=== PATIENT | male | born 1940 | race Caucasian/White ===

== ENCOUNTER → 2016-07-30 | Outpatient (CLI) | payer OTHER ==
[2016-07-30 13:16] LABS: URINE APPEARANCE CLEAR (CLEAR); URINE BILIRUBIN NEG (NEG); URINE COLOR YELLOW; URINE NITRITE NEG (NEG); URINE SPECIFIC GRAVITY 1.024 (1.000-1.030); UROBILINOGEN NEG (NEG)
[2016-07-30 13:28] LABS: MANUAL MICROSCOPIC REQUIRED? NO; REVIEW REQ? NO
[2016-07-30 13:33] LABS: BLOOD UREA NITROGEN 24 mg/dl (7-18); BUN/CREATININE RATIO 20.2 (10-20); CALCIUM 8.5 mg/dl (8.5-10.1); CARBON DIOXIDE 29 mmol/L (21-32); CHLORIDE 108 mmol/L (98-107); GLUCOSE 99 mg/dl (70-99); MAGNESIUM 2.3 mg/dl (1.8-2.4); POTASSIUM 3.3 mmol/L (3.5-5.1); SODIUM 145 mmol/L (136-145); URIC ACID 7.6 mg/dl (2.6-7.2)
[2016-07-30 13:34] LABS: PHOSPHORUS 2.8 mg/dl (2.5-4.9)
[2016-07-30 13:43] LABS: URINE PROTIEN/CREAT RATIO 0.1 (0-0.2); URINE TOTAL PROTEIN 19.8 mg/dl (0-11.9)
== END | disposition home or self-care (01) ==
LOC: C.LAB1850 12:03
PROVIDERS: ATTEND Internal Medicine Nephrology
DX: I10 Essential (primary) hypertension (principal)

== ENCOUNTER → 2016-08-02 | Outpatient (CLI) | payer OTHER ==
--- NOTE | 2016-08-02 11:54 | DIAGNOSTIC IMAGING REPORT ---
Renal arterial Doppler DUPLEX RENAL ARTERY CLINICAL HISTORY: I10 Resistant hypertension Resistant hypertension, evaluate for r hypertension TECHNIQUE: Arterial Doppler COMPARISON STUDY: None FINDINGS: Arterial Doppler evaluation of the right kidney shows no significant velocity increase. Resistive indices are unremarkable. There is no increased velocity of the left renal artery proximally at 190 cm/s. This would indicate at least a moderate degree of stenotic change. IMPRESSION: Moderate stenotic change origin left renal artery. Arterial Doppler is otherwise negative. Electronically signed by: Josué Swenson M.D. 08/02/2016 11:53 AM Dictated Date/Time: 08/02/2016 11:51 AM
== END | disposition home or self-care (01) ==
LOC: C.ULTRBC 10:04
PROVIDERS: ATTEND Internal Medicine Nephrology
DX: I10 Essential (primary) hypertension (principal)

== ENCOUNTER 2018-09-25 08:05 | Inpatient (IN) ==
--- NOTE | 2018-09-16 16:23 | PAT Medication Instructions ---
Medication Instructions Date of Service September 16, 2018 Home Medications acetaminophen [Tylenol Extra 500 mg PO UD (if needed) amlodipine 10 mg PO HS clonazepam 0.5 mg PO UD PRN (if needed) metoprolol tartrate 25 mg PO BID pantoprazole 40 mg PO BID ASK your surgeon for instructions ibuprofen 600 mg PO UD PRN DO NOT take the morning of surgery cholecalciferol (vitamin D3) 1,000 unit PO DAILY losartan-hydrochlorothiazide 1 tab PO QAM Take morning of surgery With a small sip of water, OTHERWISE NOTHING TO EAT OR DRINK AFTER MIDNIGHT: acetaminophen [Tylenol Extra 500 mg PO UD (okay to take up to 4 hours prior to surgery if needed) clonazepam 0.5 mg PO UD PRN (if needed) metoprolol tartrate 25 mg PO BID pantoprazole 40 mg PO BID Take evening before surgery acetaminophen [Tylenol Extra 500 mg PO UD (if needed) amlodipine 10 mg PO HS clonazepam 0.5 mg PO UD PRN (if needed) metoprolol tartrate 25 mg PO BID pantoprazole 40 mg PO BID Other Notes If you have any questions please call us at [phone] or [phone] or [phone] or [phone]
--- NOTE | 2018-09-17 12:33 | Anesthesiology Consultation ---
Date of Service September 17, 2018 Assessment & Plan (1) Encounter for pre-operative examination: - No previous anesthesia/intubation records Chart Review Chart Review: Acceptable Risk for Surgery and Patient seen in Pre Admission Testing Consults Requested medical (Dr. Luz (09/19)) Patient was seen by PCP on 09/19 for preoperative examination. Per note, "The patient is a class I risk (0 points) - 3.9% 30 day risk of , IN, or cardiac arrest. However, the most recent EKG does demonstrate changes when compared to the previous EKG from 2013. Most notably, PACs and sinus bradycardia w/ rate of 56 bpm. This should be taken into consideration by the surgical team." Teaching & Discussion Pre-Anesthesia Teaching/Discussion Notes: Instructed NPO after midnight before surgery, except medications with 15 cc of water. Medication instructions pr ovided according to the PAT guidelines. History Surgery Operation Date: 09/25/18 12:55 Proposed Procedures p L5-S1 Decompression and Fusion, Spinal Cord Monitoring - Percy Sánchez, Height/Weight Height: 5 ft 10 in Weight: 94.1 kg Allergies Allergy/AdvReac Type Severity Reaction Status Date / Time shrimp Allergy Unknown NO Verified 09/12/18 09:57 REACTION WITH Medications Home Medications Medication Instructions Recorded Confirmed Last Taken acetaminophen [Tylenol Extra 500 mg PO UD PRN 09/12/18 09/12/18 Unknown Strength] amlodipine 10 mg PO HS 09/12/18 09/12/18 09/11/18 cholecalciferol (vitamin D3) 1,000 unit PO DAILY 09/12/18 09/12/18 Unknown [Vitamin D3] clonazepam 0.5 mg PO UD PRN 09/12/18 09/12/18 Unknown ibuprofen 600 mg PO UD PRN 09/12/18 09/12/18 Unknown losartan-hydrochlorothiazide 1 tab PO QAM 09/12/18 09/12/18 09/12/18 metoprolol tartrate 25 mg PO BID 09/12/18 09/12/18 09/12/18 pantoprazole 40 mg PO BID 09/12/18 09/12/18 09/12/18 Past Medical History Medical History Acid reflux Acoustic neuroma H/O XRT. NOW STABLE. Anxiety Chronic back pain History of GI bleed History of prostate cancer Hypertension Spinal stenosis Urinary incontinence Exercise / Class Metabolic Activity II 4-5 Yardwork/Stairs/Walk up hill (Golfs 3-4 times per week, Swims 3-4 times per week, was able to climb FOS until back started causing problems this spring. Denies CP or SOB. ) Past Surgical History Surgical History History of Achilles tendon repair right History of appendectomy History of colonoscopy History of endoscopy History of prostatectomy History of total left knee replacement History of urologic surgery bladder sling Past Anesthesia History No Hx of Anesthesia Complications and No Family Hx of Anesthesia Complications History of PONV No Hx of PONV and No Hx of Motion Sickness Social History Smoking Status: Former smoker tobacco type: cigarettes Smoking cigarettes per day: ~1ppd x 18-20 years ago Do You Dip or Chew Tobacco: Yes (FEW CANS A WEEK - ADVISED NPO) Smoking End Date: QUIT 25 YRS AGO Hx Alcohol Use: Yes Alcohol type: beer alcohol intake frequency: other Alcohol Intake Frequency Comment: AVERAGE 3-4 BEERS A WEEK (During summer, less if not golfing) Hx Substance Use: No substance use type: does not use Review of Systems Patient denies chest pain, shortness of breath, dyspnea on exertion, cough, wheezing, palpitations. +Joint Pain (Back) +Acid Reflux (Controlled with medications) Physical Exam Vital Signs BP: 113/66 P: 55 R: 14 T: 98.0 SPO2: 96% on RA ENMT Thyromental Distance: > or= 3.5 Finger Breadths (4) Mallampati Class: II Neck normal visual inspection and trachea midline; neck extension not limited Respiratory normal respiratory effort Auscultation: lungs clear to auscultation bilaterally Cardiovascular Rate/Rhythm: regular rate and regular rhythm Heart Sounds: no murmur Vessels: no carotid bruit Neurologic moves all extremities Psychiatric Orientation: alert and oriented x 3 Testing Electrocardiogram Date: 09/17/18 Findings: + SB @ (56) Sinus bradycardia with premature atrial complexes. Left axis deviation When compared with ECG of 10/30/13, PACs are now present. Ventricular rate has decreased by 29bpm. Chest X-Ray Date: 09/17/18 Findings: + NAD FINDINGS: The bones soft tissues and hemidiaphragms are normal. The cardiomedi astinal silhouette is normal. The lungs are clear. The pulmonary vasculature is normal. IMPRESSION: Negative chest. Laboratory Results 09/17/18 13:02 09/17/18 13:02 PT 10.3 Seconds (9.0-12.0) 09/17/18 13:02 INR 1.0 (0.9-1.1) 09/17/18 13:02 APTT 27.0 Seconds (21.0-31.0) 09/17/18 13:02 Yellow 09/17/18 13:02 Clear (Clear) 09/17/18 13:02 5.5 (4.5-7.5) 09/17/18 13:02 Ur Specific Dumont 1.026 (1.000-1.030) 09/17/18 13:02 Negative (Negative) 09/17/18 13:02 Negative (Negative) 09/17/18 13:02 Trace (Negative) H 09/17/18 13:02 Negative (Negative) 09/17/18 13:02 Ur Leukocyte Esterase Negative (Negative) 09/17/18 13:02 Blood Type A Positive 09/17/18 13:02 Antibody Screen NEGATIVE 09/17/18 13:02 09/17/18 13:02 Urine Culture - Final Urine,Clean Catch Three types of organisms present, all low counts probable skin brando. No further identifications or sensitivities to follow. Due to system error, headings are not showing up in above chart. U/A is NEGATIVE.
--- NOTE | 2018-09-17 14:06 | XRay Report ---
XR chest Pre-admission PA/Lat CLINICAL HISTORY: pat preoperative evaluation COMPARISON STUDY: No previous studies for comparison. FINDINGS: The bones soft tissues and hemidiaphragms are normal. The cardiomediastinal silhouette is n ormal. The lungs are clear. The pulmonary vasculature is normal. IMPRESSION: Negative chest. The above report was generated using voice recognition software. It may contain grammatical, syntax or spelling errors. Electronically signed by: Josué Swenson M.D. 09/17/2018 2:05 PM
[2018-09-17 14:42] LABS: Appearance Urine Clear (Clear); Basophils # (auto) 0.02 K/uL (0-0.2); Basophils % (auto) 0.3 %; Bilirubin Urine Negative (Negative); Blood Urine Negative (Negative); Color Urine Yellow; Eosinophils # (auto) 0.31 K/uL (0-0.5); Eosinophils % (auto) 4.8 %; Glucose Urine UA Negative (Negative); Hematocrit (blood only) 46.9 % (42-52); Hemoglobin 16.3 g/dL (14.0-18.0); Ketones Urine Trace (Negative); Leukocyte Esterase Urine Negative (Negative); Lymphocytes # (auto) 1.61 K/uL (1.2-3.4); Lymphocytes % (auto) 24.8 %; Mean Corpuscular Hgb Conc 34.8 g/dL (32-36); Mean Corpuscular Volume 78.8 fL (80-100); Mean Platelet Volume 9.6 fL (7.4-10.4); Monocytes % (auto) 10.8 %; Neutrophils # (auto) 3.86 K/uL (1.4-6.5); Neutrophils % (auto) 59.3 %; Nitrite Urine Negative (Negative); Platelet Count 219 K/uL (130-400); Protein Urine Negative (Negative); RDW Coefficient of Variation 13.7 % (11.5-14.5); RDW Standard Deviation 38.9 fL (36.4-46.3); Red Blood Count 5.95 M/uL (4.7-6.1); Specific Gravity Urine 1.026 (1.000-1.030); Urobilinogen Urine Negative (Negative); pH Urine 5.5 (4.5-7.5)
[2018-09-17 14:50] LABS: BUN Creatinine Ratio 18.8 (10-20); Creatinine Clr Calc Pharmacy 50.2 ml/min; Est GFR (African American) 54.8; Est GFR (Non-African American) 47.3; Potassium 3.8 mmol/L (3.5-5.1)
[2018-09-17 14:53] LABS: Prothrombin Time 10.3 Seconds (9.0-12.0)
[~2018-09-25 08:05] MED LIST: ACETAMINOPHEN 500 MG TAB PO SCH; CEFAZOLIN 1000MG 1,000 MG/7.5 ML SYR IV SCH; CEFAZOLIN 2000MG 2,000 MG/15 ML SYR IV SCH; CeleBREX 200 MG CAP PO SCH; GABAPENTIN 300 MG PO SCH; HYDROmorphone INJ 2 MG/ML SYR/VIAL ONE; LR 15ML/HR IV SCH; MIDAZOLAM HCL 1 MG/ML 2ML VIAL ONE; fentaNYL citrate 100 MCG/2 ML VIAL ONE
[2018-09-25] MEDS ORDERED: fentaNYL citrate 100 MCG/2 ML VIAL ONE ×3 (08:34→12:29)
[2018-09-25] MEDS ORDERED: HYDROmorphone INJ 2 MG/ML SYR/VIAL ONE (08:34)
[2018-09-25] MEDS ORDERED: NEOSTIGMINE METHYLSULFATE 1 MG/ML 10ML VIAL ONE (08:35)
[2018-09-25] MEDS ORDERED: ROCURONIUM BROMIDE 10 MG/ML 5 ML VIAL ONE (08:35)
[2018-09-25] MEDS ORDERED: METOCLOPRAMIDE HCL INJ 5 MG/ML 2 ML VIAL ONE (08:35)
[2018-09-25] MEDS ORDERED: LIDOCAINE HCL 2% 2 ML VIAL/AMP(20MG/ML) INFIL ONE (08:35)
[2018-09-25] MEDS ORDERED: DEXAMETHASONE SOD INJ 4 MG/ML VIAL ONE (08:35)
[2018-09-25] MEDS ORDERED: ONDANSETRON INJ 2 MG/ML 2 ML VIAL ONE (08:35)
[2018-09-25] MEDS ORDERED: PROPOFOL IV EMULSION 10 MG/ML 20 ML VIAL IV ONE (08:35)
[2018-09-25] MEDS ORDERED: GLYCOPYRROLATE 0.2 MG/ML VIAL ONE (08:35)
--- NOTE | 2018-09-25 10:30 | History & Physical Bridge Note ---
Date of Service September 25, 2018 History & Physical Bridge Note I have examined the patient, reviewed the History & Physical and in the interval since the performance of the History & Physical I have noted the following changes of clinical significance: no changes noted
--- NOTE | 2018-09-25 10:31 | History & Physical Report ---
Date of Service September 25, 2018 Assessment & Plan (1) Spinal stenosis, lumbar region with neurogenic claudication: Decompression and fusion L5-S1 Present on Admission?: Yes History of Present Illness Chief Complaint: Back and leg pain Primary Care Provider: Kati Martel This is a 78-year-old male who presents with worsening back and bilateral leg pain. After failing extensive course of nonoperative care is here for surgical intervention. Allergies Allergy/AdvReac Type Severity Reaction Status Date / Time shrimp Allergy Unknown NO Verified 09/25/18 08:41 REACTION WITH Home Medications Home Medications Medication Instructions Recorded Confirmed Type acetaminophen [Tylenol Extra 500 mg PO UD PRN 09/12/18 09/25/18 History Strength] amlodipine 10 mg PO HS 09/12/18 09/25/18 History cholecalciferol (vitamin D3) 1,000 unit PO DAILY 09/12/18 09/25/18 History [Vitamin D3] clonazepam 0.5 mg PO UD PRN 09/12/18 09/25/18 History ibuprofen 600 mg PO UD PRN 09/12/18 09/25/18 History losartan-hydrochlorothiazide 1 tab PO QAM 09/12/18 09/25/18 History metoprolol tartrate 25 mg PO BID 09/12/18 09/25/18 History pantoprazole 40 mg PO BID 09/12/18 09/12/18 History Past Med/Surg History Social History Preferred Language: Armenian Communication Ability: Effective Communication Ability Comment: HARD OF HEARING, AIDE LEFT EAR Tax Assessor Required: No Beliefs That Will Affect Care: None Current Living Situation: Spouse Other Information That Helps Us Care for You: No Feels Safe at Home: Yes Smoking Status: Former smoker Tobacco Type: cigarettes Cigarettes Per Day: ~1ppd x 18-20 years ago Do You Dip or Chew Tobacco: Yes (FEW CANS A WEEK - ADVISED NPO) Smoking End Date: QUIT 25 YRS AGO Tobacco Cessation Education Requested by Patient: No Hx Alcohol Use: Yes Alcohol type: beer Hx Substance Use: No Physical Exam Vital Signs (Past 24 Hours): Last Vital Signs Temp 36.5 C 09/25/18 08:45 Pulse 60 09/25/18 08:45 Resp 18 09/25/18 08:45 BP 152/86 H 09/25/18 08:45 Pulse Ox 96 09/25/18 08:45 Physical Exam: On exam patient is alert and oriented neurologically intact.
[2018-09-25] MEDS ORDERED: PROPOFOL IV EMULSION 10 MG/ML 100 ML VIAL IV ONE (10:33)
[2018-09-25] MEDS ORDERED: BACITRACIN INJ 50,000 UNIT VIAL ONE (10:43)
[2018-09-25] MEDS ORDERED: BUPIVACAINE/EPINEPHRINE 0.5% MPF 1:200,000 30 ML VIAL ONE (10:43)
[2018-09-25] MEDS ORDERED: FLOSEAL HEMOSTATIC MATRIX 10ML TOP ONE (12:42)
--- NOTE | 2018-09-25 12:43 | Operative Report ---
Post Operative Report Pre & Post Diagnosis Operation Date: 09/25/18 10:35 Pre-Op Diagnosis: Lumbar Spinal Stenosis with Neurogenic Claudication Lumbar spondylolisthesis L5-S1 Post-Op Diagnosis: Same Procedure Operation Date: 09/25/18 10:35 Actual Procedures #1 lumbar decompression with bilateral medial facetectomies and foraminotomies L4-5 L5-S1. #2 posterior spinal fusion L5-S1. #3 placement posterior instrumentation L5-S1. #4 interbody fusion L5-S1. #5 placement of peek cage 9 x 26 mm L5-S1 per #6 placement of local autograft in the posterior lateral gutters. #7 placement infuse collagen sponge bone mass graft in the posterior lateral gutters and ostial amp in the interbody space. Surgeon Percy Sánchez DO Investigation Division Sergeant Vanessa Castillo Estimated Blood Loss 175 Findings Consistent with Post-Op Diagnosis Specimens None Indications This is a 78-year-old male who presents with above-mentioned diagnosis with continued decline in status he elected to undergo the above-mentioned procedure. Description of Procedure Patient was met with identified and informed consent obtained. Patient was then taken to the operative suite underwent ablation placed in a prone position the Felix table on top of the John frame. All bony prominences well-padded eyes inspected to ensure no external pressure placed upon the peer at this point the lumbar spine was prepped and draped in a normal sterile fashion. Sharp dissection with the assistance of Bovie cautery was performed down to and exposing the lamina and transverse processes of L5 and sacral ala bilaterally. From a caudal to cephalad fashion complete laminectomy of L5 partial laminectomy L4 was performed. Bilateral medial facetectomies were performed including aggressive foraminotomies particular the 5 1 level were appreciated severe L5 neural compression. After this complete pedicle screws were placed in L5 and S1 levels bilaterally with assistance of fluoroscopy the purposes hubert placed. By way of a transforaminal approach on the right complete discectomy was performed in plate graded to subcortical bleeding bone and a 9 x 26 mm peek cage filled with ostium bone graft tapped in position. Rods were then locked in final position bilaterally. The transverse processes of L5 and S1 levels bur to subcortical bleeding bone. Infuse collagen sponge mass graft local autograft placed in the posterior lateral gutters. 15 round GUIDO drain inserted. Incision was then closed with 1 Vicryl in the fascia 2-0 Vicryl subtenons seen for Monocryl for final skin closure. Steri-Strip sterile dressings placed. She will continue PACU stable condition. Please note Vanessa Castillo present throughout the entire procedure involved in patient positioning complex portions of the surgery and final skin closure. Lastly spinal cord monitoring was utilized throughout the procedure and no changes noted. I attest to the content of the Intraoperative Record and any orders documented therein. Any exceptions are noted below.
[2018-09-25] MEDS ORDERED: ePHEDrine sulfate 50 MG/ML AMP IV PRN (12:44)
[2018-09-25] MEDS ORDERED: NALOXONE HCL 0.4 MG/1 ML VIAL/CARP IV PRN (12:44)
[2018-09-25] MEDS ORDERED: PROMETHAZINE HCL 12.5 MG in SODIUM CHLORIDE 0.9% 50 ML IV PRN ×2 (12:44→14:41)
[2018-09-25] MEDS ORDERED: FLUMAZENIL 0.1 MG/1 ML 10 ML VIAL IV PRN (12:44)
[2018-09-25] MEDS ORDERED: ATROPINE SULFATE 0.1 MG/ML 10ML SYR IV PRN (12:44)
[2018-09-25] MEDS ORDERED: LABETALOL HCL IV 5 MG/ML 20ML IV PRN (12:44)
[2018-09-25] MEDS ORDERED: ONDANSETRON INJ 2 MG/ML 2 ML VIAL IV PRN ×2 (12:44→14:41)
[2018-09-25] MEDS ORDERED: HYDROmorphone INJ 1 MG/ML SYRINGE IV PRN (12:44)
--- NOTE | 2018-09-25 13:17 | Fluoroscopy Report ---
LUMBAR SPINE, INTRAOPERATIVE FLUOROSCOPY HISTORY: L5-S1 decompression and fusion. FLUOROSCOPY TIME: 19 seconds. FINDINGS: Intraoperative fluoroscopy was provided for the lumbar spine. 2 fluoroscopic spot images we re obtained. Posterior decompression and fusion at L5-S1 with pedicle screws and rods. The hardware i s intact. IMPRESSION: Fluoroscopy provided for a L5-S1 posterior decompression and fusion. Electronically signed by: Saul Naranjo M.D. 09/25/2018 1:15 PM
--- NOTE | 2018-09-25 14:05 | Anesthesiology Progress Note ---
Date of Service September 25, 2018 Anesthesia Post Procedure Vital Signs Vital Signs: Temp Pulse Pulse Resp BP Pulse Ox 09/25/18 13:45 68 17 131/87 94 09/25/18 13:35 64 17 123/64 99 09/25/18 13:25 36.3 C L 68 18 129/67 100 09/25/18 13:15 75 19 138/73 99 09/25/18 13:05 81 12 145/64 H 100 09/25/18 12:58 36.1 C L 88 15 121/86 98 09/25/18 08:45 36.5 C 60 18 152/86 H 96 Pain Intensity Bilateral Back: Pain Intensity: 4 Transfer of Care Handoff Completed per policy Notes Mental Status: alert / awake / arousable Patient Amnestic to Procedure: Yes Nausea / Vomiting: adequately controlled Pain: adequately controlled Airway Patency, RR, SpO2: stable & adequate BP & HR: stable & adequate Hydration State: stable & adequate Anesthetic Complications: no major complications apparent
[2018-09-25] MEDS ORDERED: HYDROmorphone INJ 0.5 MG/0.5 ML SYR IV PRN (14:41)
[2018-09-25] MEDS ORDERED: LORazepam 0.5 MG/1 ML VIAL IV PRN (14:41)
[2018-09-25] MEDS ORDERED: ACETAMINOPHEN 1,000 MG/100 ML VIAL IV PRN (14:41)
[2018-09-25] MEDS ORDERED: DO NOT ADMINISTER PNEUMOCOCCAL VACCINE PRN (14:41)
[2018-09-25] MEDS ORDERED: METOCLOPRAMIDE HCL INJ 5 MG/ML 2 ML VIAL IV PRN (14:41)
[2018-09-25] MEDS ORDERED: clonazePAM 0.5 MG TAB PO PRN (14:41)
[2018-09-25] MEDS ORDERED: TRAMADOL HCL 50 MG TABLET PO PRN (14:41)
[2018-09-25] MEDS ORDERED: ONDANSETRON 4 MG TAB PO PRN (14:41)
[2018-09-25] MEDS ORDERED: BISACODYL 10 MG SUPP PR PRN (14:41)
[2018-09-25] MEDS ORDERED: SOD PHOSPHATE/SOD BIPHOSPHATE ENEMA 132 ML BTL PR PRN (14:41)
[2018-09-25] MEDS ORDERED: ACETAMINOPHEN 500 MG TAB PO PRN (14:41)
[2018-09-25] MEDS ORDERED: MAGNESIUM HYDROXIDE SUSP 30 ML UDC PO PRN (14:41)
[2018-09-25] MEDS ORDERED: DO NOT ADMINISTER FLU VACCINE PRN (14:41)
[2018-09-25] MEDS ORDERED: LORazepam 0.5 MG TAB PO PRN (14:41)
[2018-09-25] MEDS ORDERED: OXYCODONE HCL IR 5 MG TAB (IMMEDIATE RELEASE) PO PRN (14:41)
[2018-09-25] MEDS ORDERED: ALUMINUM/MAGNESIUM SUSP 30 ML UDC PO PRN (14:41)
[2018-09-25] MEDS ORDERED: FAMOTIDINE 20 MG TAB PO PRN (15:00)
[2018-09-25] MEDS: LACTATED RINGER'S 1,000 ML IV SCH ×2 (15:30→21:40)
[2018-09-25] MEDS: KETOROLAC TROMETHAMINE 15 MG/ML VIAL IV SCH ×2 (15:58→21:40)
[2018-09-25] MEDS: LOSARTAN/HCTZ 50/12.5MG TAB PO SCH (15:58)
[2018-09-25] MEDS: CEFAZOLIN 2000MG 2,000 MG/15 ML SYR IV SCH (17:41)
[2018-09-25] MEDS: AMLODIPINE BESYLATE 5 MG TAB PO SCH (20:39)
[2018-09-25] MEDS: PANTOprazole 40 MG TAB PO SCH (20:39)
[2018-09-25] MEDS: METOPROLOL TARTRATE 25 MG TAB PO SCH (20:40)
[2018-09-25] MEDS: DOCUSATE SODIUM/SENNA 50/8.6MG TAB PO SCH (20:41)
[2018-09-26] MEDS: CEFAZOLIN 2000MG 2,000 MG/15 ML SYR IV SCH (02:59)
[2018-09-26] MEDS: KETOROLAC TROMETHAMINE 15 MG/ML VIAL IV SCH ×2 (03:00→09:45)
[2018-09-26 06:12] LABS: Hematocrit (blood only) 38.6 % (42-52); Hemoglobin 13.5 g/dL (14.0-18.0); Immature Granulocytes # (auto) 0.03 K/uL (0.00-0.02); Immature Granulocytes % (auto) 0.2 %; Lymphocytes # (auto) 0.85 K/uL (1.2-3.4); Mean Corpuscular Volume 77.5 fL (80-100); Monocytes # (auto) 1.55 K/uL (0.11-0.59); Neutrophils # (auto) 11.67 K/uL (1.4-6.5); Neutrophils % (auto) 82.8 %; Platelet Count 195 K/uL (130-400); RDW Coefficient of Variation 13.7 % (11.5-14.5); RDW Standard Deviation 38.6 fL (36.4-46.3); Red Blood Count 4.98 M/uL (4.7-6.1)
[2018-09-26] MEDS: POLYETHYLENE (MIRALAX) 17 GM PACK PO SCH ×2 (06:12→12:10)
[2018-09-26 06:40] LABS: BUN Creatinine Ratio 19.2 (10-20); Calcium 8.6 mg/dl (8.5-10.1); Creatinine Clr Calc Pharmacy 47.3 ml/min; Est GFR (African American) 51.3; Est GFR (Non-African American) 44.3; Potassium 3.6 mmol/L (3.5-5.1)
[2018-09-26] MEDS: LOSARTAN/HCTZ 50/12.5MG TAB PO SCH (07:34)
[2018-09-26] MEDS: PANTOprazole 40 MG TAB PO SCH ×2 (07:34→21:44)
[2018-09-26] MEDS: METOPROLOL TARTRATE 25 MG TAB PO SCH ×2 (07:34→21:44)
[2018-09-26] MEDS: CHOLECALCIFEROL 1,000 UNITS TAB PO SCH (07:35)
--- NOTE | 2018-09-26 15:23 | Orthopedic Progress Note ---
Date of Service September 26, 2018 Assessment & Plan (1) Spinal stenosis, lumbar region with neurogenic claudication: Present on Admission?: Yes Subjective Back pain is controlled leg symptoms improved. Physical Exam Physical Exam: Patient is sitting the chair at the bedside. Is good strength testing. Appears comfortable. Results & Data Vital Signs (Past 12 Hours) Vital Signs Temp Pulse Pulse Resp BP BP Pulse Ox 09/26/18 12:00 36.7 C 73 18 140/52 L 95 09/26/18 08:00 36.4 C L 85 18 140/70 93 09/26/18 03:53 36.5 C 74 16 142/75 H 93
[2018-09-26] MEDS: clonazePAM 1 MG TAB PO SCH ×2 (17:02→21:44)
[2018-09-26] MEDS: AMLODIPINE BESYLATE 5 MG TAB PO SCH (21:44)
[2018-09-26] MEDS: DOCUSATE SODIUM/SENNA 50/8.6MG TAB PO SCH (21:44)
[2018-09-26] MEDS: ACETAMINOPHEN 500 MG TAB PO PRN (23:30)
[2018-09-27] MEDS: METOPROLOL TARTRATE 25 MG TAB PO SCH ×2 (07:49→20:38)
[2018-09-27] MEDS: PANTOprazole 40 MG TAB PO SCH ×2 (07:49→20:37)
[2018-09-27] MEDS: LOSARTAN/HCTZ 50/12.5MG TAB PO SCH (07:50)
[2018-09-27] MEDS: CHOLECALCIFEROL 1,000 UNITS TAB PO SCH (07:50)
[2018-09-27] MEDS: ACETAMINOPHEN 500 MG TAB PO PRN ×2 (07:51→15:52)
--- NOTE | 2018-09-27 10:34 | Orthopedic Progress Note ---
Date of Service September 27, 2018 Assessment & Plan (1) Spinal stenosis, lumbar region with neurogenic claudication: This time we will continue physical therapy monitor his GUIDO output anticipate discharge home tomorrow. Present on Admission?: Yes Subjective Back pain is controlled leg symptoms improved. Still blocking to the right quadricep. This been present for some time. Physical Exam Physical Exam: Exam is in the chair at the bedside. He appears comfortable. Is good strength testing. Results & Data Vital Signs (Past 12 Hours) Vital Signs Temp Pulse Resp BP Pulse Ox 09/27/18 06:36 36.7 C 80 14 116/71 95 09/26/18 23:17 36.5 C 97 H 16 161/73 H 97
[2018-09-27] MEDS: clonazePAM 1 MG TAB PO SCH ×2 (17:25→22:42)
[2018-09-27] MEDS: AMLODIPINE BESYLATE 5 MG TAB PO SCH (20:38)
[2018-09-27] MEDS: DOCUSATE SODIUM/SENNA 50/8.6MG TAB PO SCH (20:38)
[2018-09-28] MEDS: ACETAMINOPHEN 500 MG TAB PO PRN (05:58)
[2018-09-28] MEDS: CHOLECALCIFEROL 1,000 UNITS TAB PO SCH (07:45)
[2018-09-28] MEDS: METOPROLOL TARTRATE 25 MG TAB PO SCH (07:45)
[2018-09-28] MEDS: PANTOprazole 40 MG TAB PO SCH (07:46)
[2018-09-28] MEDS: LOSARTAN/HCTZ 50/12.5MG TAB PO SCH (07:46)
--- NOTE | 2018-09-28 08:06 | Discharge Summary ---
Date of Service September 28, 2018 Admission HPI Per Admitting Provider This is a 78-year-old male who presents with worsening back and bilateral leg pain. After failing extensive course of nonoperative care is here for surgical intervention. Discharge Data Consultations 09/25/18 14:41 Consult Case Management - Discharge Planning Routine Procedures Performed Operation Date: 09/25/18 10:35 Actual Procedures p L5-S1 Decompression and Fusion, Spinal Cord Monitoring(Not Applicable) - Percy Sánchez DO Hospital Course (1) Spinal stenosis, lumbar region with neurogenic claudication: Patient is a 78-year-old male with history physical examination her graft images consistent with the above-mentioned diagnosis. This reason is brought to the operating room and underwent a lumbar decompression at L4-5 and L5-S1 and instrumented fusion at L5-S1. He is brought to PACU in stable condition with a GUIDO drain in place. He was then transferred to the orthopedic floor. He was placed on GI and DVT prophylaxis. He was seen by physical therapy bedside postoperative day #1. He is progressed nicely at this point and is safe for home discharge. He is going to use his walker on discharge. He is to avoid lifting anything heavier than a coffee cup. He should not perform any full bending at the waist. He is to change dressing once daily until his dressing is dry once is dry he may begin to shower. He is going to see us in the office in approximately 2 weeks at which time new imaging of his back will be performed. If he develops any fevers chills increased pain he will contact our office.
== END 2018-09-28 10:39 | disposition home or self-care (01) | DRG 455 ==
LOC: ASU 08:05 → 3E 12:47